=== PATIENT | female | born 1965 | race African-American/Black ===

== ENCOUNTER 2019-05-05 18:27 | Emergency (ER) | payer OTHER ==
[~2019-05-05] VITALS: Ht 170.2 cm; Wt 60.3 kg
[2019-05-05 18:50] VITALS: BP 111/69
--- NOTE | 2019-05-05 20:23 | NUR ---
AMBULATED TO ER BED 2 FROM [facility]
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
[2019-05-05 23:18] VITALS: BP 118/71
--- NOTE | 2019-05-05 23:18 | NUR ---
DISCHARGE PAPERS GIVEN TO PT. STATES RELIEF. VSS. RX OF NORCO AND MOTRIN GIVEN. SIDE EFFECTS EXPLAINED. INSTRUCTED TO F/U WITH PCP AND WHEN TO RETURN TO ER. PT VERBALLIZED UNDERSTANDING OF DC INSTRCUTIONS. ALL QUESTIONS ANSWERED.
== END 2019-05-05 23:18 | disposition home or self-care (01) ==
LOC: MED 18:27
DX: S13.4XXA Sprain of ligaments of cervical spine, initial encounter (principal); V89.2XXA Person injured in unspecified motor-vehicle accident, traffic, initial encounter; Y93.89 Activity, other specified; Y92.89 Other specified places as the place of occurrence of the external cause; Y99.8 Other external cause status
CPT/HCPCS: 99283